=== PATIENT | male | born 1990 | race Caucasian/White ===

== ENCOUNTER 2025-04-15 13:50 | Emergency (ER) | payer MEDICAID ==
[~2025-04-15] VITALS: Ht 167.6 cm; Wt 89.0 kg
[2025-04-15 13:57] VITALS: O2SAT 99
[2025-04-15 14:14] VITALS: BP 120/67; PULSE 90; RESP 16; TEMP 36.9; O2SAT 100
== END 2025-04-15 16:30 | disposition home or self-care (01) ==
LOC: ER 13:50
DX: M79.641 Pain in right hand (principal); Y08.89XA Assault by other specified means, initial encounter; Y93.89 Activity, other specified; Y92.89 Other specified places as the place of occurrence of the external cause; Y99.8 Other external cause status
CPT/HCPCS: 73130; 99283